=== PATIENT | male | born 1955 | race Two or more races ===

== ENCOUNTER 2019-07-31 14:31 | Emergency (ER) | payer OTHER ==
[~2019-07-31] VITALS: Ht 162.6 cm; Wt 81.6 kg
[2019-07-31] MEDS ORDERED: IV NS 0.9% 1,000 ML BAG IV ONE (15:00)
[2019-07-31] MEDS ORDERED: KETOROLAC TROMETHAMINE INJ 30 MG/ML VIAL IV ONE (15:00)
[2019-07-31] MEDS ORDERED: MECLIZINE HCL 12.5 MG TABLET PO ONE (15:00)
[2019-07-31] MEDS ORDERED: MECLIZINE HCL 25 MG TABLET ONE (15:12)
[2019-07-31] MEDS ORDERED: KETOROLAC TROMETHAMINE 15 MG/ML VIAL ONE (15:12)
[2019-07-31 15:20] LABS: BASOPHILS % (AUTO) 0.6 % (0.0-2.0); EOSINOPHILS % (AUTO) 1.9 % (0.0-6.0); HEMATOCRIT 44 % (39-51); HEMOGLOBIN 14.6 g/dL (13.5-17.5); LYMPHOCYTES # (AUTO) 1.7 /CMM (0.8-4.8); LYMPHOCYTES % (AUTO) 19.7 % (20.0-44.0); MEAN CORPUSCULAR HGB CONC 33 g/dl (31.0-36.0); MEAN CORPUSCULAR VOLUME 92 fL (80-96); MONOCYTES # (AUTO) 0.3 /CMM (0.1-1.30); MONOCYTES % (AUTO) 3.9 % (2.0-12.0); NEUTROPHILS # (AUTO) 6.4 /CMM (1.8-8.9); NEUTROPHILS % (AUTO) 73.9 % (43.0-81.0); PLATELET COUNT (AUTO) 178 /CMM (150-450); RED BLOOD CELL COUNT(AUTO) 4.78 MIL/uL (4.5-6.0); WHITE BLOOD COUNT (AUTO) 8.7 K/uL (4.3-11.0)
--- NOTE | 2019-07-31 15:25 | NUR ---
[id number] AND VICKI, PT IN CUSTODY, C/O HEADACHE, NEED MEDICAL CLEARANCE. PT AAOX4, VSS. RR EVEN & UNLABORED. DENIES CP, SOB, WEAKNESS, NUMBNESS/TINGLING SENSATION @ THIS TIME. VICKI OFFICERS @ BS & WILL CONT TO MONITOR.
[2019-07-31 15:30] LABS: CARBON DIOXIDE 27 mmol/L (21-32); CHLORIDE 107 mmol/L (98-107); CREATININE 1.1 mg/dL (0.6-1.3); GLUCOSE 114 mg/dL (74-106); POTASSIUM 4.7 mmol/L (3.5-5.1); SODIUM SERUM 139 mmol/L (136-145); UREA NITROGEN, BLOOD 25 mg/dL (7-18)
[2019-07-31 17:19] VITALS: BP 132/78
--- NOTE | 2019-07-31 17:19 | NUR ---
Patient discharged to home in stable condition. Written and verbal after care instructions given. Patient verbalizes understanding of instruction. IV removed. Catheter intact and site benign. Pressure and 4x4 applied to site. No bleeding noted.
== END 2019-07-31 17:20 ==
LOC: ER 14:34
DX: R42 Dizziness and giddiness (principal); E11.9 Type 2 diabetes mellitus without complications; I10 Essential (primary) hypertension; I25.10 Atherosclerotic heart disease of native coronary artery without angina pectoris; I25.2 Old myocardial infarction; Z60.2 Problems related to living alone
CPT/HCPCS: 36415; 80048; 84484; 85025; 93005; 96361; 96374; 99284; J1885; J7030; J8597